=== PATIENT | female | born 1990 | race African-American/Black ===

== ENCOUNTER 2016-12-15 10:03 | Emergency (ER) | payer MEDICAID ==
[2016-12-15 10:23] VITALS: BP 131/81
--- NOTE | 2016-12-15 10:37 | EDM.PDOC ---
ED HPI ENT - General Chief Complaint: ENT Problem Stated Complaint: POSS EAR INFECTION,TEETH HURTING Time Seen by Provider: 12/15/16 10:28 Source of Information: Reports: Patient History Limitations: Reports: No limitations - History of Present Illness INITIAL COMMENTS - FREE TEXT/NARRATIVE: 26-year-old female presents the ED with diffuse right hemifacial pain. Constant and throbbing for the last week but getting worse instead of better. Pain is felt in her ear right temporal area right temporomandibular joint and along the angle of the mandible. She's had recent dental work but was on the other side where wisdom tooth was extracted. She cannot chew on the right side. No associated fever or chills. Pain is bad enough that it kept her awake most of last night in spite of taking Motrin orally. Her other concern is a soft tissue mass in the left anterior facial cheek area. It is slightly tender and seems to be getting bigger. Symptom Onset Date: 12/08/16 Timing/Duration: Reports: Day(s):, Getting worse, Gradual onset Severity: moderate Location: Reports: right Ear (Right josé miguel-face) Quality: Reports: Ache, Throbbing Improves with: Reports: Medication (Motrin helps some.) Worsens with: Reports: Other (Chewing and eating on that side.) Associated Symptoms: Reports: no other symptoms. 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 - Related Data Allergies/ADRs: Allergies Allergy/AdvReac Type Severity Reaction Status Date / Time No Known Allergies Allergy Verified 12/15/16 10:23 Home Meds: Home Meds Doxycycline [Vibramycin] 100 mg PO Q12HR #20 tablet 12/15/16 [Rx] oxyCODONE HCl/Acetaminophen [Percocet 5-325 mg Tablet] 1 - 2 each PO Q4H PRN # 20 tablet 12/15/16 [Rx] Past Medical History - Past Health History Medical/Surgical History: Denies 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 Denies: fever, chills, malaise, weakness, decreased appetite, weight loss (Just from not sleeping.) HEENT: Reports: Ear pain, Other (Right hemifacial pain from right scientology temporal mandibular joint along the angle of the mandible.) Respiratory: Reports: No Symptoms Cardiovascular: Reports: No symptoms Endocrine: Reports: no symptoms GI/Abdominal: Reports: No symptoms : Reports: no symptoms Musculoskeletal: Reports: no symptoms Skin: Reports: other Neurological: Reports: No Symptoms (Has a soft tissue mass in the left facial cheek that she wanted me to look at.) Psychiatric: Reports: No symptoms, Other Immunologic: Reports: no symptoms ED EXAM, ENT - Physical Exam Exam: See Below Exam Limited By: No limitations General Appearance: alert, WD/WN, no apparent distress Eye Exam: bilateral eye: normal inspection Ears: normal TMs, other (No pain at the right temporomandibular joint.) Mouth/Throat: Other (Patient was found to have a badly decayed and broken left upper second molar tooth. There is no adjacent obvious abscess to drain. The gingiva is swollen and erythematous in this area. Very tender to touch with the tongue blade.) Head: atraumatic, normocephalic Neck: normal inspection, supple, non-tender, full range of motion. No: lymphadenopathy (L), lymphadenopathy (R) Skin: Other (Patient has a 1.5 cm soft tissue mass which is mobile IE scant sebaceous cyst over her left facial cheek. It is not actively infected but is mildly tender to touch. So the very bad place to have surgically removed. The hope is that oral antibiotic may help shrink this area.) Course - Vital Signs Last Recorded V/S: Last Vital Signs Temp 36.6 C 12/15/16 10:21 Pulse 75 12/15/16 10:21 Resp 16 12/15/16 10:21 BP 131/81 12/15/16 10:21 Pulse Ox 98 12/15/16 10:21 - Radiology Interpretation Free Text/Narrative:: 6-year-old female presents the ED for evaluation of right hemifacial pain for the last week. Examination confirmed it to be coming from an infected right upper molar. The tooth is broken and decayed. Treated with doxycycline 100 mg twice daily for the next 10 days also in an effort to take away any infection in sebaceous cyst overlying her left facial cheek. She'll use Motrin or Aleve as needed to relieve pain and inflammation. Percocet tabs 5-25 mg strength also provided for pain relief primarily at bedtime. She will follow up with dentist when able. Departure - Departure Time of Disposition: 10:34 Disposition: Home, Self-Care 01 Condition: fair Clinical Impression: Dental infection Prescriptions: Doxycycline [Vibramycin] 100 mg PO Q12HR #20 tablet oxyCODONE HCl/Acetaminophen [Percocet 5-325 mg Tablet] 1 - 2 each PO Q4H PRN # 20 tablet PRN Reason: pain relief. Instructions: Dental Caries Referrals: PCP,None [Primary Care Provider] - Forms: ED Department Discharge Additional Instructions: Evaluation in the emergency department today in regards to pain right josé miguel- face. No ear abnormalities identified. Temporomandibular joint intact. There is a bad tooth on the right upper molar I believe second molar with DKA and secondary infection. Treatment will be antibiotic doxycycline 100 mg twice daily for the next 10 days to clear up infection. Motrin 600 mg every 6 hours need to reduce pain and inflammation. Percocet tabs 5-25 one or 2 every 4-6 hours to relieve pain not relieved by Motrin alone until the antibiotic has time to work. No disembarked also was designed to try and shrink the the sebaceous cyst that is evident in the left facial cheek. Followup with dentist when able to have the right upper molar tooth looked at and likely extracted.
== END 2016-12-15 10:50 | disposition home or self-care (01) ==
LOC: JD.ED 10:03
DX: K04.7 Periapical abscess without sinus (principal); F17.210 Nicotine dependence, cigarettes, uncomplicated
CPT/HCPCS: 99283

== ENCOUNTER 2017-03-29 11:45 | Emergency (ER) | payer MEDICAID ==
[2017-03-29 12:04] VITALS: BP 137/79
--- NOTE | 2017-03-29 12:16 | EDM.PDOC ---
ED HPI GENERAL MEDICAL PROBLEM - General Chief Complaint: Lower Extremity Injury/Pain Stated Complaint: INJURED LT ANKLE Time Seen by Provider: 03/29/17 12:14 Source of Information: Reports: Patient History Limitations: Reports: No Limitations - History of Present Illness INITIAL COMMENTS - FREE TEXT/NARRATIVE: 26-year-old female attends the ED with an acute injury to her left ankle. She reports that about 1:00 this morning she was walking downstairs when she inadvertently inverted her left ankle causing her to fall backwards onto the stairs but talk first. She did not hit her head. Pain kept her awake good portion of the night Tylenol did not help. She did ice it overnight. Cannot weight-bear on the ankle at this time. Both medially and laterally. No previous injuries to the ankle that would require surgical repair. Onset: Today Onset Date: 03/29/17 Onset Time: 01:00 Duration: Hour(s): Location: Reports: Lower Extremity, Left Quality: Reports: Ache, Throbbing Severity: Moderate Improves with: Reports: None Worsens with: Reports: Movement Context: Reports: Other. 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 Left Ankle Pain Score (Numeric/FACES): 8 - Related Data Allergies Allergy/AdvReac Type Severity Reaction Status Date / Time No Known Allergies Allergy Verified 03/29/17 11:59 Home Meds: Home Meds oxyCODONE HCl/Acetaminophen [Percocet 5-325 mg Tablet] 1 - 2 each PO Q4H PRN # 10 tablet 03/29/17 [Rx] Past Medical History - Past Health History Medical/Surgical History: Denies 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: - Past Surgical History HEENT Surgical History: Reports: Oral Surgery Social & Family History - Family History Family Medical History: Noncontributory - Tobacco Use Smoking Status *Q: Never Smoker Years of Tobacco use: 4 Packs/Tins Daily: 0.1 Second Hand Smoke Exposure: Yes - Caffeine Use Caffeine Use: Reports: Coffee, Energy Drinks, Soda, Tea - Recreational Drug Use Recreational Drug Use: No - Living Situation & Occupation Living situation: Reports: Single, Other Occupation: Unemployed Review of Systems - Review of Systems Review Of Systems: See Below Constitutional: Reports: No Symptoms Eyes: Reports: No Symptoms Ears: Reports: No Symptoms Nose: Reports: No Symptoms Mouth/Throat: Reports: No Symptoms Respiratory: Reports: No Symptoms Cardiovascular: Reports: No Symptoms GI/Abdominal: Reports: No Symptoms Genitourinary: Reports: No Symptoms Musculoskeletal: Reports: No Symptoms Skin: Reports: No Symptoms Neurological: Reports: No Symptoms Psychiatric: Reports: No Symptoms ED EXAM, GENERAL - Physical Exam Exam: See Below Exam Limited By: No Limitations General Appearance: Alert, WD/WN, No Apparent Distress Peripheral Pulses: 3+: Posterior Tibial (L), Posterior Tibial (R), Dorsalis Pedis (L), Dorsalis Pedis (R) Extremities: Other (Examination was limited to the left ankle. There is no pain on compression of the proximal fibula. No pain on firm compression mid shaft tib -fib in the ankle. The foot itself exhibits no signs of fractures of the metacarpal tarsals or particularly the head of the fifth metatarsal. There is swelling lateral aspect of the ankle of the distal fibula. There is tenderness of the anterior medial ligaments as well deltoid ligament appears to be intact.) Course - Vital Signs Last Recorded V/S: Last Vital Signs Temp 36.4 C 03/29/17 11:59 Pulse 88 03/29/17 11:59 Resp 16 03/29/17 11:59 BP 137/79 03/29/17 11:59 Pulse Ox 100 03/29/17 11:59 - Orders/Labs/Meds Orders: Active Orders 24 hr Category Date Time Status Ankle Min 3V Lt [CR] Stat Exams 03/29/17 12:14 Taken - Radiology Interpretation Free Text/Narrative:: 26-year-old female presents to the ED with an acute inversion injury to her left ankle that occurred earlier this morning. She is unable to weight-bear due to the pain. She has moderate swelling over the distal fibula on the left side. Minimal tenderness of the deltoid ligament medially. Plan x-ray of the ankle to be done. Patient denies any possibility of . - Re-Assessments/Exams Free Text/Narrative Re-Assessment/Exam: 03/29/17 12:47 x-rays of the left ankle are negative for bony injury. Ligaments were identified to be stable on examination after no fracture is identified. She will be Zeferino wrap on during the day and off at night. Elevate and ice today with ice to the area one half hour out of every 4 hours. Motrin or Aleve Q6 hours for pain relief. Nonweightbearing crutch walking for the next 3-5 days. Did write a prescription for Percocet 5/325 milligrams tablets 10 one tablet every 4-6 hours for pain not controlled by Aleve or Motrin alone. Follow-up if not completely back to normal in 14 days time. Departure - Departure Time of Disposition: 12:55 Disposition: Home, Self-Care 01 Condition: Fair Clinical Impression: Inversion sprain of left ankle Qualifiers: Encounter type: initial encounter Qualified Code(s): S93.402A - Sprain of unspecified ligament of left ankle, initial encounter - Discharge Information Prescriptions: oxyCODONE HCl/Acetaminophen [Percocet 5-325 mg Tablet] 1 - 2 each PO Q4H PRN # 10 tablet PRN Reason: pain relief. Referrals: Hollie Zabala PA-C [Primary Care Provider] - Forms: ED Department Discharge Additional Instructions: Evaluation in the emergency department today in regards to inversion injury to the left ankle sustained earlier this morning. X-rays do not reveal any bony injuries to the ankle. For injuries are to the soft tissues i.e. the ligaments surrounding the ankle joint on the outer aspect. Treatment is Zeferino wrap on during the day and off at night. Ice pack to the area for one half hour out of every 4 hours today and elevate as much as possible. Nonweightbearing crutch walking for the next 3-5 days until you're able to weight-bear with minimal amount of pain. Continue Motrin 600 mg every 6 hours or Aleve 2 tablets every 8 hours for pain and inflammation relief. I did give you a prescription for stronger pain medication Percocet 5/325 milligrams one tablet every 4-6 hours for pain not controlled by Motrin or Aleve alone. Usually occurs over the next 3 days with in terms of swelling. It usually takes 10-14 days before you're able to walk up stairs comfortably without pain. If you're still having positive the ankle in 14 days time he should be reviewed. - My Orders Last 24 Hours: My Active Orders 03/29/17 12:14 Ankle Min 3V Lt [CR] Stat - Assessment/Plan Last 24 Hours: My Active Orders 03/29/17 12:14 Ankle Min 3V Lt [CR] Stat
--- NOTE | 2017-03-29 17:29 | CR ---
Left ankle: Four views of the left ankle were obtained. Comparison: No previous left ankle study. Ankle mortise is symmetric. No fracture, dislocation or other bony abnormality is seen. Impression: 1. No abnormality is identified on left ankle exam. Diagnostic code #1
== END 2017-03-29 13:29 | disposition home or self-care (01) ==
LOC: JD.ED 11:45
DX: S93.402A Sprain of unspecified ligament of left ankle, initial encounter (principal); W10.9XXA Fall (on) (from) unspecified stairs and steps, initial encounter
CPT/HCPCS: 73610-26-LT; 73610-LT; 99283

== ENCOUNTER 2017-06-22 11:38 | Emergency (ER) | payer SELFPAY ==
[2017-06-22 11:54] VITALS: BP 188/79
--- NOTE | 2017-06-22 12:16 | EDM.PDOC ---
ED HPI GENERAL MEDICAL PROBLEM - General Chief Complaint: ENT Problem Stated Complaint: COUGH AND SORE THROAT Time Seen by Provider: 06/22/17 12:00 Source of Information: Reports: Patient History Limitations: Reports: No Limitations - History of Present Illness INITIAL COMMENTS - FREE TEXT/NARRATIVE: 27-year-old female presents for evaluation and treatment of cold symptoms. Reports that she has been ill for the last week. She has tried multiple over-the -counter medications but her symptoms are not improving. Current symptoms include left ear discomfort, body aches, sore throat and a cough. Reports that her symptoms are worse at night. No fevers. No recent travel. Son is ill with similar symptoms. Patient did not get a flu shot this year. Duration: Week(s): (1) Throat Pain Score (Numeric/FACES): 6 - Related Data Allergies Allergy/AdvReac Type Severity Reaction Status Date / Time No Known Allergies Allergy Verified 03/29/17 11:59 Home Meds: Home Meds . 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 Denies: Fever HEENT: Reports: Ear Pain (left), Throat Pain Respiratory: Reports: Cough, Sputum Neurological: Reports: Headache ED EXAM, ENT - Physical Exam Exam: See Below Exam Limited By: No Limitations General Appearance: Alert, WD/WN, No Apparent Distress Eye Exam: Bilateral Eye: Normal Inspection Ears: Normal External Exam, Normal Canal, Hearing Grossly Normal, Normal TMs Nose: Normal Inspection Mouth/Throat: Normal Inspection, Normal Lips, Normal Oropharynx Respiratory/Chest: No Respiratory Distress, Lungs Clear, Normal Breath Sounds Cardiovascular: Normal Peripheral Pulses, Regular Rate, Rhythm, No Murmur Neurological: Alert, Oriented, Normal Cognition Psychiatric: Normal Affect, Normal Mood Skin: Warm, Dry, Normal Color Course - Vital Signs Last Recorded V/S: Last Vital Signs Temp 36.4 C 06/22/17 11:54 Pulse 89 06/22/17 11:54 Resp 20 06/22/17 11:54 BP 188/79 H 06/22/17 11:54 Pulse Ox 99 06/22/17 11:54 - Orders/Labs/Meds Orders: Active Orders 24 hr Category Date Time Status CULTURE STREP A CONFIRMATION [RM] Stat Lab 06/22/17 12:25 Results STREP SCRN A RAPID W CULT CONF [RM] Stat Lab 06/22/17 12:25 Received - Re-Assessments/Exams Free Text/Narrative Re-Assessment/Exam: 06/22/17 13:11 Influenza returned negative. Rapid strep returned negative negative I reviewed the results with the patient. I feel this is a viral infection. Encouraged her to continue [id number] medications instructed her to follow-up if not much better. Return to the ER if symptoms change or worsen. Discharge instructions as documented. Departure - Departure Time of Disposition: 13:12 Disposition: Home, Self-Care 01 Condition: Good Clinical Impression: Viral upper respiratory illness - Discharge Information Instructions: Upper Respiratory Infection, Adult, [id number] Referrals: PCP,None [Primary Care Provider] - Forms: ED Department Discharge Additional Instructions: Continue with [id number] medications including Tylenol or Motrin as needed for body aches and symptom relief. Rest. Make sure drinking plenty of fluids. Follow-up with family medicine if your symptoms are not much better in 1 week. Please return to the ER if your symptoms change or worsen. - My Orders Last 24 Hours: My Active Orders 06/22/17 12:25 CULTURE STREP A CONFIRMATION [RM] Stat STREP SCRN A RAPID W CULT CONF [RM] Stat - Assessment/Plan Last 24 Hours: My Active Orders 06/22/17 12:25 CULTURE STREP A CONFIRMATION [RM] Stat STREP SCRN A RAPID W CULT CONF [RM] Stat
== END 2017-06-22 13:35 | disposition home or self-care (01) ==
LOC: JD.ED 11:38
DX: J06.9 Acute upper respiratory infection, unspecified (principal)
CPT/HCPCS: 87081; 87430; 87804; 99282; 99283

== ENCOUNTER 2017-08-30 11:12 | Emergency (ER) | payer MEDICAID ==
[2017-08-30 11:35] VITALS: BP 128/87
--- NOTE | 2017-08-30 11:35 | EDM.PDOC ---
ED HPI GENERAL MEDICAL PROBLEM - General Chief Complaint: Respiratory Problem Stated Complaint: FEVER/BODY ACHES Time Seen by Provider: 08/30/17 11:35 Source of Information: Reports: Patient, RN Notes Reviewed History Limitations: Reports: No Limitations - History of Present Illness INITIAL COMMENTS - FREE TEXT/NARRATIVE: The patient states that she has had rhinorrhea, a cough productive of greenish mucus, sore throat, generalized body aches, headache, and chills, for the past 3 days. She has not checked her temperature. She states that she tried NyQuil, which did not help. She states that she has also been taking Motrin, which has not helped. The patient states that she received an influenza vaccine about 6 months ago ( last season). She did not receive an influenza vaccine this season. The patient does not have a PCP. Generalized Pain Score (Numeric/FACES): 10 - Related Data Allergies Allergy/AdvReac Type Severity Reaction Status Date / Time No Known Allergies Allergy Verified 03/29/17 11:59 Home Meds: Home Meds . 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: - Past Surgical History HEENT Surgical History: Reports: Oral Surgery ([place] teeth extraction) Social & Family History - Family History Family Medical History: Noncontributory - Tobacco Use Smoking Status *Q: Never Smoker Years of Tobacco use: 4 Packs/Tins Daily: 0.1 Second Hand Smoke Exposure: Yes - Caffeine Use Caffeine Use: Reports: Soda, Tea - Recreational Drug Use Recreational Drug Use: No - Living Situation & Occupation Living situation: Reports: Single, Other Occupation: Unemployed ED ROS GENERAL - Review of Systems Review Of Systems: ROS reveals no pertinent complaints other than HPI. ED EXAM, GENERAL - Physical Exam Exam: See Below Exam Limited By: No Limitations General Appearance: Alert, WD/WN, No Apparent Distress Eye Exam: Bilateral Eye: Normal Inspection Ears: Normal External Exam, Normal Canal, Hearing Grossly Normal, Normal TMs Nose: Normal Inspection, No Blood, Other (Bilateral nasal mucosal edema, left > right) Throat/Mouth: Normal Inspection, Normal Lips, Normal Teeth, Normal Gums, Normal Oropharynx, Normal Voice, No Airway Compromise Head: Atraumatic, Normocephalic Neck: Normal Inspection, Supple, Non-Tender, Full Range of Motion. No: Lymphadenopathy (L), Lymphadenopathy (R) Respiratory/Chest: No Respiratory Distress, Lungs Clear, Normal Breath Sounds, No Accessory Muscle Use Cardiovascular: Normal Peripheral Pulses, Regular Rate, Rhythm, No Gallop, No JVD, No Murmur, No Rub Peripheral Pulses: 4+: Radial (L), Radial (R) GI/Abdominal: Normal Bowel Sounds, Soft, Non-Tender, No Organomegaly, No Distention, No Abnormal Bruit, No Mass (Female) Exam: Deferred Rectal (Female) Exam: Deferred Back Exam: Normal Inspection, Full Range of Motion Extremities: Normal Inspection, Normal Range of Motion, No Pedal Edema, Normal Capillary Refill Neurological: Alert, Oriented, Normal Cognition, No Motor/Sensory Deficits Psychiatric: Normal Affect Skin Exam: Warm, Dry, Intact, Normal Color, No Rash Course - Vital Signs Last Recorded V/S: Last Vital Signs Temp 37.5 C 08/30/17 11:34 Pulse 112 H 08/30/17 11:34 Resp 20 08/30/17 11:34 BP 128/87 08/30/17 11:34 Pulse Ox 97 08/30/17 11:34 - Orders/Labs/Meds Orders: Active Orders 24 hr Category Date Time Status CULTURE STREP A CONFIRMATION [] Stat Lab 08/30/17 11:45 Results STREP SCRN A RAPID W CULT CONF [] Stat Lab 08/30/17 11:45 Results Labs: Laboratory Tests 08/30/17 08/30/17 Range/Units 12:00 12:00 WBC 6.15 (3.98-10.04) K/mm3 RBC 4.98 (3.98-5.22) M/mm3 Hgb 10.5 L (11.2-15.7) gm/L Hct 33.5 L (34.1-44.9) % MCV 67.3 L (79.4-94.8) fl MCH 21.1 L (25.6-32.2) pg MCHC 31.3 L (32.2-35.5) g/dl RDW Std Deviation 43.2 (36.4-46.3) fL Plt Count 391 H (182-369) K/mm3 MPV 8.6 L (9.4-12.3) fl Neutrophils % (Manual) 75 H (40-60) % Band Neutrophils % 0 (0-10) % Lymphocytes % (Manual) 18 L (20-40) % Atypical Lymphs % 0 % Monocytes % (Manual) 7 (2-10) % Eosinophils % (Manual) 0 L (0.7-5.8) % Basophils % (Manual) 0 L (0.1-1.2) Platelet Estimate Adequate Hypochromasia 2+ moderate Anisocytosis 2+ moderate Microcytosis 1+ slight RBC Morph Comment Abnormal Sodium 138 (136-145) mEq/L Potassium 3.5 (3.5-5.1) mEq/L Chloride 104 (98-107) mEq/L Carbon Dioxide 26 (21-32) mEq/L Anion Gap 11.5 (5-15) BUN 8 (7-18) mg/dL Creatinine 0.9 (0.55-1.02) mg/dL Est Cr Clr Drug Dosing 87.40 mL/min Estimated GFR (MDRD) > 60 (>60) mL/min BUN/Creatinine Ratio 8.9 L (14-18) Glucose 92 (74-106) mg/dL Calcium 8.8 (8.5-10.1) mg/dL Total Bilirubin 0.2 (0.2-1.0) mg/dL AST 33 (15-37) U/L ALT 53 (14-59) U/L Alkaline Phosphatase 70 (46-116) U/L Total Protein 8.0 (6.4-8.2) g/dl Albumin 3.8 (3.4-5.0) g/dl Globulin 4.2 gm/dL Albumin/Globulin Ratio 0.9 L (1-2) - Re-Assessments/Exams Free Text/Narrative Re-Assessment/Exam: 08/30/17 11:50 The patient complains of rhinorrhea, cough, sore throat, body aches, headache, and chills. She is afebrile here in the ED, and her oxygen saturation is 100% on room air. On physical examination, the only abnormal finding is bilateral nasal mucosal edema, a bit worse on the left than the right. Her lungs are clear to auscultation bilaterally. Clinically, she has a viral URI, although she could have influenza. I have swabbed her throat and will send a strep test. I will also check for influenza, although only for epidemiologic purposes, for if it returns positive, the patient is outside the window for treatment. I offered to perform a blood work and a chest x-ray; the patient would like blood work done, but refused a chest x-ray, stating that she can't leave her 2 children alone. Clinically, I don't believe that the patient really requires a chest radiograph, however, I did tell her that we would be able to have someone watch her children for the few minutes that it would take to get a chest x-ray, but the patient still declined. 08/30/17 13:06 Test results discussed with the patient. The patient's influenza A screen has returned positive. The remainder of her workup was unremarkable. Unfortunately, the patient is presenting well after 48 hours after the onset of her symptoms, therefore antivirals such as Tamiflu would not be effective. I splinted the patient that the only option at this time is symptomatically treatment. The patient expresses understanding. I will refer her to Dr. Cora Navarrete, as a PCP. Departure - Departure Time of Disposition: 13:07 Disposition: Home, Self-Care 01 Condition: Good Clinical Impression: Influenza A - Discharge Information Referrals: PCP,None [Primary Care Provider] - Cora Navarrete MD [Physician] - Forms: ED Department Discharge Additional Instructions: You were seen in the emergency room for 3 days of a runny nose, cough, sore throat, body aches, headache, and chills. Workup in the ER included blood work, a rapid strep test, and an influenza swab. Your influenza swab returned positive for Influenza A. The remainder of your workup was negative. Unfortunately, you have had influenza for too long to be treated by the antiviral medication. This episode of influenza will have to run its course. For nasal congestion, purchase [id number] oxymetazoline in a "pump mist" bottle. [place] one spray up each nostril, wait 5 minutes, then spray a second spray up each nostril. You may repeat this every 12 hours, for a MAXIMUM of 5 days. This will reduce nasal congestion, and make it easier for you to breathe, however, after 5 days, it actually CAUSES nasal congestion. Also purchase "Simply Saline" in a pressurized canister. [place] this up each nostril many times per day. For your sore throat, you can use Chloraseptic spray, warm salt water gargles, Tylenol, or ibuprofen. Follow-up with Dr. Cora Navarrete as a primary care physician. If any other problems, please do not hesitate to return to the ER. - My Orders Last 24 Hours: My Active Orders 08/30/17 11:45 CULTURE STREP A CONFIRMATION [RM] Stat STREP SCRN A RAPID W CULT CONF [RM] Stat - Assessment/Plan Last 24 Hours: My Active Orders 08/30/17 11:45 CULTURE STREP A CONFIRMATION [RM] Stat STREP SCRN A RAPID W CULT CONF [] Stat
== END 2017-08-30 13:26 | disposition home or self-care (01) ==
LOC: JD.ED 11:12
DX: J10.1 Influenza due to other identified influenza virus with other respiratory manifestations (principal)
CPT/HCPCS: 36415; 80053; 85025; 87081; 87430; 87804; 99283

== ENCOUNTER 2017-11-07 20:41 | Emergency (ER) | payer MEDICAID ==
[2017-11-07 21:04] VITALS: BP 126/86
--- NOTE | 2017-11-08 00:06 | EDM.PDOC ---
ED HPI GENERAL MEDICAL PROBLEM - General Chief Complaint: Abdominal Pain Stated Complaint: LEFT SIDE PAIN/HEADACHE Time Seen by Provider: 11/07/17 21:45 Source of Information: Reports: Patient History Limitations: Reports: No Limitations - History of Present Illness INITIAL COMMENTS - FREE TEXT/NARRATIVE: The patient states that she underwent a medical on 11/04/2017 , at a women's clinic in [place]. Prior to treatment, the patient underwent an ultrasound, which confirmed a SLIUP at 8 weeks 6 days. The patient's LMP was 08/26. She is now . The patient states that she was given a medicine that she took on 11/04/2017, followed by 4 pills the following day, 11/05/2017. She does not know the name of either of the medicines. She states that she passed some tissue on 11/05/2017, and has had vaginal bleeding since, perhaps one pad per hour. She then developed left lower quadrant abdominal pain yesterday, 11/06/2017. It is sharp in character, and constant, but made worse when she defecates. She reports having a fever to 102 this morning, along with nausea, but no emesis, constipation, or diarrhea. No blood in the stool. She denies urinary symptoms, such as dysuria, urinary frequency, or urgency. The patient's last oral intake was around noon today. The patient states that she has a PCP, but does not recall their name. 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 - Past Surgical History HEENT Surgical History: Reports: Oral Surgery ([place] teeth extraction) Social & Family History - Family History Family Medical History: Noncontributory - Tobacco Use Smoking Status *Q: Former Smoker Years of Tobacco use: 4 Packs/Tins Daily: 0.1 Second Hand Smoke Exposure: Yes - Caffeine Use Caffeine Use: Reports: Coffee, Soda, Tea - Alcohol Use Alcohol Use History: Yes Alcohol Use Frequency: Socially - Recreational Drug Use Recreational Drug Use: No - Living Situation & Occupation Living situation: Reports: Single, with Family (4 kids), Other (with roomate) Occupation: Unemployed ED ROS GENERAL - Review of Systems Review Of Systems: ROS reveals no pertinent complaints other than HPI. ED EXAM, RENAL/ - Physical Exam Exam: See Below Exam Limited By: No Limitations General Appearance: Alert, WD/WN, No Apparent Distress Eye Exam: Bilateral Eye: Normal Inspection Ears: Normal External Exam, Hearing Grossly Normal Nose: Normal Inspection, No Blood Throat/Mouth: Normal Inspection, Normal Lips, Normal Voice, No Airway Compromise Head: Atraumatic, Normocephalic Neck: Normal Inspection, Full Range of Motion Respiratory/Chest: No Respiratory Distress, Lungs Clear, Normal Breath Sounds, No Accessory Muscle Use Cardiovascular: Normal Peripheral Pulses, Regular Rate, Rhythm, No Gallop, No JVD, No Murmur, No Rub GI/Abdominal: Normal Bowel Sounds, Soft, No Organomegaly, No Distention, No Abnormal Bruit, No Mass, Tender (LLQ only. Nontender elsewhere.) (Female) Exam: Deferred Rectal (Female) Exam: Deferred Back Exam: Normal Inspection, Full Range of Motion, NT Extremities: Normal Inspection, Normal Range of Motion, No Pedal Edema, Normal Capillary Refill Neurological: Alert, Oriented, Normal Cognition, No Motor/Sensory Deficits Psychiatric: Normal Affect Skin Exam: Warm, Dry, Intact, Normal Color, No Rash Lymphatic: No Adenopathy Course - Vital Signs Last Recorded V/S: Last Vital Signs Temp 36.9 C 11/07/17 21:02 Pulse 94 11/07/17 21:02 Resp 20 11/07/17 21:02 BP 126/86 11/07/17 21:02 Pulse Ox 100 11/07/17 21:02 - Re-Assessments/Exams Free Text/Narrative Re-Assessment/Exam: 11/08/17 00:04 Transvaginal ultrasound of the pelvis is read by [facility] as " Echogenic structure within the endometrium measuring 3.2 x 2.5 cm. The patient apparently had a recent and the possibility of a retained products of conception should be considered. The endometrial stripe is thickened at 45 mm" (sic) 11/08/17 00:[address] Yang at 00:07. He believes that the amount of intrauterine tissue is appropriate for a medical at this stage. He suspects that the pain that the patient is experiencing is uterine cramps, also appropriate at this stage. He suggests, however, that if the patient's symptoms persist, or her bleeding worsens, that she follow-up either at the clinic in [place], or at his office, early this coming week. Test results then discussed with the patient. I'm concerned more about the left lower quadrant tenderness than the pelvic pain itself, and we discussed the option of obtaining a CT scan to further evaluate it. The patient would prefer, however, to follow-up with Dr. Yang early this week, but agrees to return to the ED if her pain or bleeding worsens. Departure - Departure Time of Disposition: 00:23 Disposition: Home, Self-Care 01 Condition: Good Clinical Impression: Pelvic pain in female - Discharge Information Instructions: Incomplete Miscarriage Referrals: PCP,None [Primary Care Provider] - Tereso Yang MD [Physician] - Forms: ED Department Discharge Additional Instructions: You were seen in the emergency room for left pelvic pain following a medical . Workup in the ER included a transvaginal ultrasound of the pelvis, which found tissue in your uterus consistent with retained products of conception. Your case was discussed with the mutuel clerk Dr. Tereso Yang. Further workup, including a CT scan of your abdomen and pelvis, was offered, but declined. Follow-up with Dr. Yang early this coming week for further evaluation. If your pain or bleeding worsens before you can see Dr. Yang, please return to the ER.
--- NOTE | 2017-11-08 16:52 | US ---
Pelvic ultrasound: Multiple real-time images were obtained transvaginally. Echogenic material is seen within the endometrial cavity measuring 3.8 cm in greatest size. Findings most likely due to retained products of conception. No myometrial abnormality is seen. Ovaries appear within normal limits. No free fluid is seen. Measurements: Uterus: Length 13.2 cm, AP height 7.0 cm, transverse width 9.2 cm Endometrial thickness: 3.1 cm Right ovary: 2.3 x 2.7 x 1.8 cm Left ovary: 3.6 x 2.2 x 2.7 cm Impression: 1. Echogenic material within the endometrial cavity most likely representing retained products of conception. Diagnostic code #3 Agree with preliminary report issued by [facility] ([facility] preliminary report dictated on 11/08/17, 12:51 AM Central Time)
== END 2017-11-08 00:30 | disposition home or self-care (01) ==
LOC: JD.ED 20:41
DX: R10.2 Pelvic and perineal pain (principal); Z87.891 Personal history of nicotine dependence
CPT/HCPCS: 76830; 76830-26; 99283; 99284-25

== ENCOUNTER 2018-01-10 05:44 | Emergency (ER) | payer MEDICAID, OTHER ==
[2018-01-10 05:58] VITALS: BP 138/69
[2018-01-10] MEDS ORDERED: Ondansetron 4 MG/2 ML SDV IVPUSH ONE ×2 (06:06→07:37)
--- NOTE | 2018-01-10 06:08 | EDM.PDOC ---
ED HPI GENERAL MEDICAL PROBLEM - General Chief Complaint: Gastrointestinal Problem Stated Complaint: FEVER,CHILLS STOMACH ISSUES Time Seen by Provider: 01/10/18 06:06 Source of Information: Reports: Patient History Limitations: Reports: No Limitations - History of Present Illness INITIAL COMMENTS - FREE TEXT/NARRATIVE: This is a 27-year-old female. Onset of nausea and vomiting then diarrhea around 7 PM yesterday evening. She states she's been able to keep down some 7-Up but that's about it. She doesn't have any abdominal cramping unless she is going to vomit. She denies any fever or chills. She denies any cough or congestion. She is around a lot of people so she doesn't know if she's been in contact with someone with the same symptoms. 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 Denies: Fever, Chills HEENT: Reports: No Symptoms Respiratory: Reports: No Symptoms Cardiovascular: Reports: No Symptoms Endocrine: Reports: No Symptoms GI/Abdominal: Reports: Abdominal Pain, Diarrhea, Nausea, Vomiting : Reports: No Symptoms Musculoskeletal: Reports: No Symptoms Skin: Reports: No Symptoms Neurological: Reports: No Symptoms Psychiatric: Reports: No Symptoms Hematologic/Lymphatic: Reports: No Symptoms ED EXAM, GI/ABD - Physical Exam Exam: See Below Exam Limited By: No Limitations General Appearance: Alert, WD/WN, No Apparent Distress Eyes: Bilateral: Normal Appearance Ears: Normal External Exam, Normal Canal, Normal TMs Nose: Normal Inspection Throat/Mouth: Normal Inspection, Normal Lips, Normal Voice, No Airway Compromise , Other (Membranes are tacky) Head: Normocephalic Neck: Supple Respiratory/Chest: No Respiratory Distress, Lungs Clear, Normal Breath Sounds Cardiovascular: Regular Rate, Rhythm, No Murmur GI/Abdominal Exam: Soft, Non-Tender, No Mass Back Exam: Normal Inspection, Full Range of Motion Extremities: Normal Inspection, Normal Range of Motion Neurological: Alert, Oriented Psychiatric: Normal Affect, Normal Mood Skin Exam: Warm, Dry Course - Vital Signs Last Recorded V/S: Last Vital Signs Temp 98.0 F 01/10/18 05:56 Pulse 90 01/10/18 05:56 Resp 18 01/10/18 05:56 BP 138/69 01/10/18 05:56 Pulse Ox 100 01/10/18 05:56 Orthostatic Blood Pressure [ 127/88 Standing] Orthostatic Blood Pressure [ 138/69 Supine] - Orders/Labs/Meds Orders: Active Orders 24 hr Category Date Time Status Sodium Chloride 0.9% [Normal Saline] 1,000 ml Med 01/10/18 06:15 Active IV ASDIRECTED Sodium Chloride 0.9% [Normal Saline] 1,000 ml Med 01/10/18 07:45 Active IV ASDIRECTED Sodium Chloride 0.9% [Normal Saline] 1,000 ml Med 01/10/18 09:15 Active IV ASDIRECTED Medication Orders Sodium Chloride (Normal Saline) 1,000 mls @ 1,000 mls/hr IV ASDIRECTED TOMÁS Last Admin: 01/10/18 06:19 Dose: 1,000 mls/hr Sodium Chloride (Normal Saline) 1,000 mls @ 1,000 mls/hr IV ASDIRECTED TOMÁS Last Admin: 01/10/18 07:44 Dose: 1,000 mls/hr Sodium Chloride (Normal Saline) 1,000 mls @ 1,000 mls/hr IV ASDIRECTED TOMÁS Last Admin: 01/10/18 09:25 Dose: 1,000 mls/hr Labs: Laboratory Tests 01/10/18 01/10/18 Range/Units 06:21 06:21 WBC 8.99 (3.98-10.04) K/mm3 RBC 5.35 H (3.98-5.22) M/mm3 Hgb 11.2 (11.2-15.7) gm/L Hct 36.5 (34.1-44.9) % MCV 68.2 L (79.4-94.8) fl MCH 20.9 L (25.6-32.2) pg MCHC 30.7 L (32.2-35.5) g/dl RDW Std Deviation 41.5 (36.4-46.3) fL Plt Count 358 (182-369) K/mm3 MPV 8.4 L (9.4-12.3) fl Neut % (Auto) 83.8 H (34.0-71.1) % Lymph % (Auto) 13.3 L (19.3-51.7) % [place] % (Auto) 1.9 L (4.7-12.5) % Eos % (Auto) 0.8 (0.7-5.8) Baso % (Auto) 0.1 (0.1-1.2) % Neut # (Auto) 7.53 H (1.56-6.13) K/mm3 Lymph # (Auto) 1.20 (1.18-3.74) K/mm3 [place] # (Auto) 0.17 L (0.24-0.36) K/mm3 Eos # (Auto) 0.07 (0.04-0.36) K/mm3 Baso # (Auto) 0.01 (0.01-0.08) K/mm3 Manual Slide Review Abnormal smear Sodium 140 (136-145) mEq/L Potassium 3.8 (3.5-5.1) mEq/L Chloride 103 (98-107) mEq/L Carbon Dioxide 26 (21-32) mEq/L Anion Gap 14.8 (5-15) BUN 13 (7-18) mg/dL Creatinine 0.8 (0.55-1.02) mg/dL Est Cr Clr Drug Dosing TNP Estimated GFR (MDRD) > 60 (>60) mL/min BUN/Creatinine Ratio 16.3 (14-18) Glucose 101 (74-106) mg/dL Calcium 8.9 (8.5-10.1) mg/dL Total Bilirubin 0.4 (0.2-1.0) mg/dL AST 51 H (15-37) U/L ALT 57 (14-59) U/L Alkaline Phosphatase 65 (46-116) U/L Total Protein 7.9 (6.4-8.2) g/dl Albumin 3.9 (3.4-5.0) g/dl Globulin 4.0 gm/dL Albumin/Globulin Ratio 1.0 (1-2) Lipase 162 (73-393) U/L Meds: Medications Generic Name Dose Route Start Last Admin Trade Name Freq PRN Reason Stop Dose Admin Sodium Chloride 1,000 mls @ 1,000 mls/hr 01/10/18 06:15 01/10/18 06:19 Normal Saline IV 1,000 mls/hr ASDIRECTED TOMÁS Administration Sodium Chloride 1,000 mls @ 1,000 mls/hr 01/10/18 07:45 01/10/18 07:44 Normal Saline IV 1,000 mls/hr ASDIRECTED TOMÁS Administration Sodium Chloride 1,000 mls @ 1,000 mls/hr 01/10/18 09:15 01/10/18 09:25 Normal Saline IV 1,000 mls/hr ASDIRECTED TOMÁS Administration Discontinued Medications Generic Name Dose Route Start Last Admin Trade Name Freq PRN Reason Stop Dose Admin Promethazine HCl 25 mg/ Sodium 51 mls @ 100 mls/hr 01/10/18 09:04 01/10/18 09 :25 Chloride IV 01/10/18 09:34 100 mls/hr ONETIME ONE Administration Ondansetron HCl 4 mg 01/10/18 06:06 01/10/18 06:19 Zofran IVPUSH 01/10/18 06:07 4 mg ONETIME ONE Administration Ondansetron HCl 4 mg 01/10/18 07:37 01/10/18 07:44 Zofran IVPUSH 01/10/18 07:38 4 mg ONETIME ONE Administration - Re-Assessments/Exams Free Text/Narrative Re-Assessment/Exam: 01/10/18 07:49 We attempted fluids and she had some mild upset stomach and vomited a small amount. I spoke to her about her normal lab results and I think is just more of a viral type infection is been going around town. We will give her an additional liter of fluids and some more Zofran and water and attempted fluids again. 01/10/18 10:10 Patient is feeling much better. Her nausea is pretty much subsided and she still getting fluids and she's finished a Phenergan drip. Once the third liter of fluids her and were going to discharge her to home with a prescription for nausea and instructions. Departure - Departure Time of Disposition: 10:10 Disposition: Home, Self-Care 01 Condition: Good Clinical Impression: Nausea and vomiting Qualifiers: Vomiting type: unspecified Vomiting Intractability: non-intractable Qualified Code(s): R11.2 - Nausea with vomiting, unspecified - Discharge Information Prescriptions: Promethazine [Phenergan] 25 mg PO Q8H PRN #12 tab PRN Reason: Nausea Instructions: Nausea and Vomiting, Adult Referrals: PCP,None [Primary Care Provider] - Forms: ED Department Discharge, ED Return to Work/School Form Additional Instructions: Home and sleep as much as you can today, no significant activity just stay in the house for the next 2 days, use the Phenergan as needed for nausea, drink lots of fluids but no food today, Thursday you can start eating easy to digest foods such as toast, yogurt, rice, bananas and crackers, no meets or vegetables for at least 4 days, follow-up with your family doctor later this week or return to the ER if your symptoms worsen - My Orders Last 24 Hours: My Active Orders 01/10/18 06:15 Sodium Chloride 0.9% [Normal Saline] 1,000 ml IV ASDIRECTED 01/10/18 07:45 Sodium Chloride 0.9% [Normal Saline] 1,000 ml IV ASDIRECTED 01/10/18 09:15 Sodium Chloride 0.9% [Normal Saline] 1,000 ml IV ASDIRECTED - Assessment/Plan Last 24 Hours: My Active Orders 01/10/18 06:15 Sodium Chloride 0.9% [Normal Saline] 1,000 ml IV ASDIRECTED 01/10/18 07:45 Sodium Chloride 0.9% [Normal Saline] 1,000 ml IV ASDIRECTED 01/10/18 09:15 Sodium Chloride 0.9% [Normal Saline] 1,000 ml IV ASDIRECTED
[2018-01-10] MEDS ORDERED: Sodium Chloride 0.9% 1,000 ML IV SCH ×3 (06:15→09:15)
[2018-01-10] MEDS ORDERED: Promethazine 25 MG in Sodium Chloride 0.9% 50 ML IV ONE (09:04)
== END 2018-01-10 11:10 | disposition home or self-care (01) ==
LOC: JD.ED 05:44
DX: R11.2 Nausea with vomiting, unspecified (principal)
CPT/HCPCS: 36415; 80053; 83690; 85025; 96361; 96365; 96375; 96376; 99283; J2405; J2550; J7040; J7050; 99284

== ENCOUNTER 2018-09-01 13:53 | Emergency (ER) | payer MEDICAID ==
[2018-09-01 14:08] VITALS: BP 142/83
[2018-09-01] MEDS ORDERED: Ondansetron 4 MG Tab.DIS PO ONE (14:37)
--- NOTE | 2018-09-01 14:48 | EDM.PDOC ---
<Franchesca Feliz - Last Filed: 09/01/18 15:02> ED HPI GENERAL MEDICAL PROBLEM - General Chief Complaint: Abdominal Pain Stated Complaint: ABDOMINAL PAINS, DIZZY AND NAUSEA Time Seen by Provider: 09/01/18 14:15 Source of Information: Reports: Patient, RN Notes Reviewed History Limitations: Reports: No Limitations - History of Present Illness INITIAL COMMENTS - FREE TEXT/NARRATIVE: Lyubov Triplett is a 28 year old female who presents today with sudden onset abdominal pain, dizziness, and nausea for the past three days. She states that she feels like she might have the flu and her symptoms just seem to be worsening. She states that she has an aching and burning abdominal pain that is made worse at night when lying down and after eating, that is across her entire abdomen. She did have an episode of emesis on Thursday, no emesis since, only nausea that is constant. She denies blood in her emesis or stool. Denies any diarrhea. Last BM was this morning and it was formed. She also complains of some URI symptoms like slight cough, nasal congestion and sore throat. She has tactile fevers and nightsweats, and states she has decreased appetite. She has been self treating with Day-Quil cold and flu, and Ny-Quil. She denies any chest pain, shortness of breath, urinary symptoms, no body aches, and no neurologic symptoms. Patient is sexually active. She states her LMP started on Aug 23 and ended 2 days ago. She does smoke cigars on occasion and previously smoked marijuana, and quit one month ago. 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 TOOL ADJUSTER History: medication on October - Past Surgical History HEENT Surgical History: Reports: Oral Surgery Social & Family History - Family History Family Medical History: Noncontributory - Tobacco Use Smoking Status *Q: Current Every Day Smoker Years of Tobacco use: 2 Packs/Tins Daily: 1 - Caffeine Use Caffeine Use: Reports: Coffee, Soda, Tea - Recreational Drug Use Recreational Drug Type: Reports: Marijuana/Hashish Other Recreational Drug Type: quit a month ago - Living Situation & Occupation Living situation: Reports: Single, with Family (4 kids), Other (with roomate) Occupation: Unemployed ED ROS GENERAL - Review of Systems Review Of Systems: ROS reveals no pertinent complaints other than HPI. ED EXAM, GI/ABD - Physical Exam Exam: See Below Exam Limited By: No Limitations General Appearance: Alert, WD/WN, No Apparent Distress Throat/Mouth: Normal Inspection, Normal Oropharynx Head: Atraumatic, Normocephalic Neck: Normal Inspection, Non-Tender, Full Range of Motion Respiratory/Chest: No Respiratory Distress, Lungs Clear, Normal Breath Sounds Cardiovascular: Regular Rate, Rhythm, No Edema, No Murmur, No Rub GI/Abdominal Exam: Normal Bowel Sounds, Soft, Non-Tender (McBurney's, Yi's and Rebound tenderness negative ), No Mass Neurological: Alert, Oriented Psychiatric: Tearful (patient becomes tearful when explaining nightime abdominal pain, but is quick to compose herself) Skin Exam: Warm, Dry, Intact, Normal Color Course - Vital Signs Last Recorded V/S: Last Vital Signs Temp 97.9 F 09/01/18 14:07 Pulse 79 09/01/18 14:07 Resp 20 09/01/18 14:07 BP 142/83 H 09/01/18 14:07 Pulse Ox 100 09/01/18 14:07 Orthostatic Blood Pressure [ 141/98 Standing] Orthostatic Blood Pressure [ 144/84 Sitting] Orthostatic Blood Pressure [ 129/80 Supine] - Orders/Labs/Meds Orders: Active Orders 24 hr Category Date Time Status Orthostatic Vital Signs [RC] ASDIRECTED Care 09/01/18 14:35 Active Abdomen 2V AP Flat Upright [CR] Stat Exams 09/01/18 16:09 Taken Labs: Laboratory Tests 09/01/18 09/01/18 09/01/18 Range/Units 14:50 14:50 15:00 WBC 9.52 (3.98-10.04) K/mm3 RBC 5.06 (3.98-5.22) M/mm3 Hgb 10.3 L (11.2-15.7) gm/L Hct 33.9 L (34.1-44.9) % MCV 67.0 L (79.4-94.8) fl MCH 20.4 L (25.6-32.2) pg MCHC 30.4 L (32.2-35.5) g/dl RDW Std Deviation 41.9 (36.4-46.3) fL Plt Count 509 H (182-369) K/mm3 MPV 8.5 L (9.4-12.3) fl Neutrophils % (Manual) 68 H (40-60) % Band Neutrophils % 1 (0-10) % Lymphocytes % (Manual) 28 (20-40) % Atypical Lymphs % 0 % Monocytes % (Manual) 2 (2-10) % Eosinophils % (Manual) 0 L (0.7-5.8) % Basophils % (Manual) 1 (0.1-1.2) Platelet Estimate Increased Plt Morphology Comment See note Poikilocytosis 1+ slight Anisocytosis 1+ slight Microcytosis 1+ slight Ovalocytes 1+ slight RBC Morph Comment Not Reportable Sodium 143 (136-145) mEq/L Potassium 3.8 (3.5-5.1) mEq/L Chloride 107 (98-107) mEq/L Carbon Dioxide 26 (21-32) mEq/L Anion Gap 13.8 (5-15) BUN 7 (7-18) mg/dL Creatinine 0.7 (0.55-1.02) mg/dL Est Cr Clr Drug Dosing 102.81 mL/min Estimated GFR (MDRD) > 60 (>60) mL/min BUN/Creatinine Ratio 10.0 L (14-18) Glucose 95 (74-106) mg/dL Calcium 9.2 (8.5-10.1) mg/dL Total Bilirubin 0.2 (0.2-1.0) mg/dL AST 23 (15-37) U/L ALT 34 (14-59) U/L Alkaline Phosphatase 61 (46-116) U/L C-Reactive Protein < 0.2 (<1.0) mg/dL Total Protein 7.9 (6.4-8.2) g/dl Albumin 4.1 (3.4-5.0) g/dl Globulin 3.8 gm/dL Albumin/Globulin Ratio 1.1 (1-2) Urine Color Yellow (Yellow) Urine Appearance Clear (Clear) Urine pH 7.0 (5.0-8.0) Ur Specific [place] 1.015 (1.005-1.030) Urine Protein Negative (Negative) Urine Glucose (UA) Negative (Negative) Urine Ketones Negative (Negative) Urine Occult Blood Negative (Negative) Urine Nitrite Negative (Negative) Urine Bilirubin Negative (Negative) Urine Urobilinogen 0.2 (0.2-1.0) Ur Leukocyte Esterase Trace H (Negative) Urine RBC Not seen (0-5) /hpf Urine WBC 5-10 H (0-5) /hpf Ur Epithelial Cells 10-20 H (0-5) /hpf Urine Bacteria Rare (FEW) /hpf Urine Mucus Not seen (FEW) /hpf Urine HCG, Qual (NEGATIVE) 09/01/18 Range/Units 15:00 WBC (3.98-10.04) K/mm3 RBC (3.98-5.22) M/mm3 Hgb (11.2-15.7) gm/L Hct (34.1-44.9) % MCV (79.4-94.8) fl MCH (25.6-32.2) pg MCHC (32.2-35.5) g/dl RDW Std Deviation (36.4-46.3) fL Plt Count (182-369) K/mm3 MPV (9.4-12.3) fl Neutrophils % (Manual) (40-60) % Band Neutrophils % (0-10) % Lymphocytes % (Manual) (20-40) % Atypical Lymphs % % Monocytes % (Manual) (2-10) % Eosinophils % (Manual) (0.7-5.8) % Basophils % (Manual) (0.1-1.2) Platelet Estimate Plt Morphology Comment Poikilocytosis Anisocytosis Microcytosis Ovalocytes RBC Morph Comment Sodium (136-145) mEq/L Potassium (3.5-5.1) mEq/L Chloride (98-107) mEq/L Carbon Dioxide (21-32) mEq/L Anion Gap (5-15) BUN (7-18) mg/dL Creatinine (0.55-1.02) mg/dL Est Cr Clr Drug Dosing mL/min Estimated GFR (MDRD) (>60) mL/min BUN/Creatinine Ratio (14-18) Glucose (74-106) mg/dL Calcium (8.5-10.1) mg/dL Total Bilirubin (0.2-1.0) mg/dL AST (15-37) U/L ALT (14-59) U/L Alkaline Phosphatase (46-116) U/L C-Reactive Protein (<1.0) mg/dL Total Protein (6.4-8.2) g/dl Albumin (3.4-5.0) g/dl Globulin gm/dL Albumin/Globulin Ratio (1-2) Urine Color (Yellow) Urine Appearance (Clear) Urine pH (5.0-8.0) Ur Specific [place] (1.005-1.030) Urine Protein (Negative) Urine Glucose (UA) (Negative) Urine Ketones (Negative) Urine Occult Blood (Negative) Urine Nitrite (Negative) Urine Bilirubin (Negative) Urine Urobilinogen (0.2-1.0) Ur Leukocyte Esterase (Negative) Urine RBC (0-5) /hpf Urine WBC (0-5) /hpf Ur Epithelial Cells (0-5) /hpf Urine Bacteria (FEW) /hpf Urine Mucus (FEW) /hpf Urine HCG, Qual Negative (NEGATIVE) Meds: Medications Discontinued Medications Generic Name Dose Route Start Last Admin Trade Name Freq PRN Reason Stop Dose Admin Ondansetron HCl 4 mg 09/01/18 14:37 09/01/18 14:50 Zofran Odt PO 09/01/18 14:38 4 mg ONETIME ONE Administration - Re-Assessments/Exams Free Text/Narrative Re-Assessment/Exam: 09/01/18 14:51 We have ordered a CBC, CMP, UA, HCG, orthostatics, and CRP to rule out any infectious process, UTI, decreased fluid status, or . Differentials include a viral gastroenteritis, decreased fluid status, gastric or duodenal ulcer, or other abdominal pathology. Lab results will help guide further differentials, as physical exam is quite benign. 09/01/18 15:02 Departure - Departure Disposition: Home, Self-Care 01 Clinical Impression: Abdominal pain, Constipation - Discharge Information Prescriptions: Dicyclomine [Bentyl] 10 mg PO TID PRN #15 cap PRN Reason: Abdominal Pain Ondansetron [Zofran ODT] 4 mg PO Q6H PRN #20 tab.dis PRN Reason: Nausea Instructions: Abdominal Pain, Adult, Constipation, Adult, [id number] Referrals: Hollie Zabala PA-C [Primary Care Provider] - Forms: ED Department Discharge Additional Instructions: Recommend symptomatic care. Zofran 1 tab every 6-8 hours as needed for nausea. Bentyl 1 tab 3 times a day as needed for abdominal pain and cramping. I also recommend you start a probiotic. These are available [id number]. Recommend clear fluids and blander foods. [place] foods include bread, rice, applesauce, toast, yogurt, egg whites etc. your xray did show increased stool in the right side of your colon. Recommend using some magnesium citrate or MiraLAX these are available [id number]. If you continue to have abdominal pain and early next week follow-up with your primary care provider. Please return to ER your symptoms change or worsen. - My Orders Last 24 Hours: My Active Orders 09/01/18 14:35 Orthostatic Vital Signs [RC] ASDIRECTED 09/01/18 16:09 Abdomen 2V AP Flat Upright [CR] Stat - Assessment/Plan Last 24 Hours: My Active Orders 09/01/18 14:35 Orthostatic Vital Signs [RC] ASDIRECTED 09/01/18 16:09 Abdomen 2V AP Flat Upright [CR] Stat <Kimmie Gruber - Last Filed: 09/01/18 20:25> ED HPI GENERAL MEDICAL PROBLEM - History of Present Illness INITIAL COMMENTS - FREE TEXT/NARRATIVE: I have seen the patient and agree with the HPI as documented by LISA Horowitz. ED ROS GENERAL - Review of Systems Review Of Systems: See Below Constitutional: Denies: Fever, Chills HEENT: Reports: No Symptoms GI/Abdominal: Reports: Abdominal Pain. Denies: Constipation, Diarrhea, Nausea, Vomiting : Reports: No Symptoms ED EXAM, GI/ABD - Physical Exam Exam: See Below Course - Radiology Interpretation Free Text/Narrative:: flat and upright abdominal xray shows no air fluid lines. No free air. Mild constipation to the right hemicolon. Formal radiology read pending. - Re-Assessments/Exams Free Text/Narrative Re-Assessment/Exam: 09/01/18 16:23 I have seen the patient and agree with the HPI, ROS and PE as documented by LISA Horowitz Reviewed the labs and imaging with the patient. Will discharge home tonight. Follow-up if not better. REcommend symptomatic care with zofran and bentyl. Recommend magnesium citrate or miralax for constipation. Discharge instruction as documented. Departure - Departure Time of Disposition: 16:36 Condition: Fair - Discharge Information *PRESCRIPTION DRUG MONITORING PROGRAM REVIEWED*: No *COPY OF PRESCRIPTION DRUG MONITORING REPORT IN PATIENT BRIDGETT: No
--- NOTE | 2018-09-02 07:29 | CR ---
Abdomen: Supine and upright views of the abdomen were obtained. Comparison: No prior abdominal study. Bowel gas pattern appears normal. Small calcifications within the left pelvis most likely represent phleboliths if patient has no obstructive ureteral symptoms. No free air is seen. Bony structures appear within normal limits for the patient's age. No discrete soft tissue abnormality is seen. Impression: 1. Incidental findings as noted above. Nothing acute is appreciated. Diagnostic code #1
== END 2018-09-01 16:50 | disposition home or self-care (01) ==
LOC: JD.ED 13:53
DX: K59.00 Constipation, unspecified (principal); F17.210 Nicotine dependence, cigarettes, uncomplicated
CPT/HCPCS: 36415; 74019; 80053; 81001; 81025; 85007; 85027; 86140; 99284; A9270

== ENCOUNTER 2018-10-18 11:24 | Emergency (ER) | payer MEDICAID ==
[2018-10-18 11:55] VITALS: BP 128/90
[2018-10-18] MEDS ORDERED: Acetaminophen/oxyCODONE 325-5 MG Tab PO ONE (12:07)
[2018-10-18] MEDS ORDERED: Ibuprofen 600 MG Tab PO ONE (12:07)
--- NOTE | 2018-10-18 12:15 | EDM.PDOC ---
ED HPI GENERAL MEDICAL PROBLEM - General Chief Complaint: ENT Problem Stated Complaint: RIGHT EAR PAIN/CONGESTION Time Seen by Provider: 10/18/18 12:08 Source of Information: Reports: Patient History Limitations: Reports: No Limitations - History of Present Illness INITIAL COMMENTS - FREE TEXT/NARRATIVE: 28-year-old female presents to the ED with severe pain in her right ear that is making her cry. He states it's a deep aching constant throbbing pain and is felt both behind the ear as well as into her temporal scalp as well as anterior to the ear and into her mandible. Scribed is throbbing and pulsating. No drainage from the ear is been appreciated. He said some mild cold symptoms over the last few days. Does have a mild productive cough at this time. No significant fever. She has also been plagued by dental caries and dental pain. Cymbalta posterior her upper molars bilaterally. States cough will produce intermittent amounts of a brownish sputum. She smokes occasional cigars she has been placing Orajel on her teeth for relief of pain. Onset: Today Onset Date: 10/18/18 Onset Time: 01:00 Duration: Hour(s): Location: Reports: Head (Right temporal face and mandibular pain), Face (Dear was painful yesterday but really started hurting at 1:00 this morning ear pain) , Chest (Productive cough for the last 2-3 days), Other Quality: Reports: Ache (Also dental caries right upper molar teeth), Pressure, Throbbing Severity: Moderate Improves with: Reports: None (Tylenol didn't help at all.) Worsens with: Reports: Other Context: Reports: Other. Denies: Activity, Lifting, Sick Contact, Trauma Associated Symptoms: Reports: Cough, cough w sputum (Spontaneous occurrence), Loss of Appetite, Malaise (Didn't get any sleep last night). Denies: No Other Symptoms, Confusion, Chest Pain ( brownish in color), Diaphoresis, Fever/Chills , Headaches, Nausea/Vomiting, Rash, Seizure, Syncope, Weakness Treatments TESTING DIRECTOR: Reports: Acetaminophen Right Ear Pain Score (Numeric/FACES): 6 - Related Data Allergies Allergy/AdvReac Type Severity Reaction Status Date / Time No Known Allergies Allergy Verified 01/10/18 05:58 Home Meds: Home Meds Doxycycline [Vibramycin] 100 mg PO BID #25 cap 10/18/18 [Rx] Gentamicin [Garamycin 0.3% Ophth Soln] 15 ml EARRT Q4H #1 bottle 10/18/18 [Rx] oxyCODONE HCl/Acetaminophen [Percocet 5-325 mg Tablet] 1 - 2 each PO Q4H PRN # 16 tablet 10/18/18 [Rx] Past Medical History - Past Health History Medical/Surgical History: Denies 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: , 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 : 1 Para: 0 Other 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 Denies: Fever, Chills, Weight Loss HEENT: Reports: Ear Pain, Other (Dental pain right upper molar teeth.). Denies : Ear Discharge, Eye Discharge (Severe right side), Eye Pain, Glasses, Hearing Loss, Nosebleed, Sinus Problem, Throat Pain, Throat Swelling Respiratory: Reports: Cough, Sputum (Brownish in color) Cardiovascular: Reports: No Symptoms Endocrine: Reports: No Symptoms GI/Abdominal: Reports: Decreased Appetite : Reports: No Symptoms Musculoskeletal: Reports: No Symptoms Skin: Reports: No Symptoms Neurological: Reports: No Symptoms Psychiatric: Reports: No Symptoms Hematologic/Lymphatic: Reports: No Symptoms ED EXAM, ENT - Physical Exam Exam: See Below Exam Limited By: No Limitations General Appearance: Alert, WD/WN, Moderate Distress (Crying because of the constant pain in her ear.) Eye Exam: Bilateral Eye: Normal Inspection Ears: Canal Swelling (Marked swelling of the floor of the middle ear canal.), Other (Old scarring of the tympanic membrane with no active infection at this time in the middle ear cavity). No: Mastoid Tenderness, Canal Blood, Canal Discharge, Canal Foreign Body, TM Bulging, TM Dullness Mouth/Throat: Dental Pain (Dental caries from severe destruction of the upper right second and first molars. About 40% of the first molar is absent and 30% of the second), Dental Tenderness ( molar is absent due to dental caries both are very tender to touch. There are show any signs of active infection.). No: Throat Swelling (right first and second molar teeth. ), Tongue Swelling, Tonsillar Exudates, Tonsillar Swelling Head: Atraumatic, Normocephalic Neck: Normal Inspection, Supple, Non-Tender, Full Range of Motion. No: Lymphadenopathy (L), Lymphadenopathy (R) Respiratory/Chest: No Respiratory Distress, Lungs Clear, Normal Breath Sounds, No Accessory Muscle Use, Other (No adventitial sounds were appreciated) Cardiovascular: Normal Peripheral Pulses, Regular Rate, Rhythm, No Edema, No Murmur, No Rub Extremities: Normal Inspection, Normal Range of Motion, Non-Tender, No Pedal Edema Neurological: Alert Psychiatric: Tearful Skin: Warm, Dry, Intact, Normal Color, No Rash Course - Vital Signs Last Recorded V/S: Last Vital Signs Temp 37.2 C 10/18/18 11:55 Pulse 90 10/18/18 11:55 Resp 16 10/18/18 11:55 BP 128/90 10/18/18 11:55 Pulse Ox 98 10/18/18 11:55 - Orders/Labs/Meds Orders: Active Orders 24 hr Category Date Time Status INFLUENZA A+B AG SCREEN [RM] Stat Lab 10/18/18 11:53 Received Meds: Medications Discontinued Medications Generic Name Dose Route Start Last Admin Trade Name Freq PRN Reason Stop Dose Admin Ibuprofen 600 mg 10/18/18 12:07 10/18/18 12:16 Motrin PO 10/18/18 12:08 600 mg ONETIME ONE Administration Oxycodone/Acetaminophen 1 tab 10/18/18 12:07 10/18/18 12:16 Percocet 325-5 Mg PO 10/18/18 12:08 1 tab ONETIME ONE Administration - Radiology Interpretation Free Text/Narrative:: 28-year-old female presents to the ED with severe pain in her right ear since 0100 hrs. this morning. Examination reveals an otitis externa. Middle ear cavity is normal. She has pain in the right temporal scalp as well as along the anterior ear and mandible. She has dental caries involving the upper right first and second molar teeth which may or may not be contributing to current pain syndrome. So she did productive cough without any adventitial sounds on exam. Afebrile. Plan Percocet tab 1 5/3/25 milligram tablet with Motrin 6 mg by mouth now. Will be placed on Doxil cycle 100 mg twice a day for the next 10 days. Advised 2 tablets the first dose. Drops to the ear or to be Garamycin ophthalmic drops which will be used in the ear 2 drops every 4 hours for the next 2 days and then 4 times a day for 8 days to complete a 10 day course. Discharged with Percocet 5/325 mg tabs 16 one or 2 every 4-6 hours in combination with Motrin 600 mg every 6 hours for pain relief. Advised that she is going to need to see the dentist to have the right upper second and first molar teeth removed as dental caries are severe at this time. Us was clear to stage percussion is likely viral in origin. The Percocet tablets will act as a cough suppressant. Follow up with personal care physician if any further problems occur Departure - Departure Time of Disposition: 12:08 Disposition: Home, Self-Care 01 Condition: Fair Clinical Impression: Infected dental carries, Bronchitis Otitis externa Qualifiers: Otitis externa type: noninfectious Noninfectious otitis externa type: unspecified noninfectious type Chronicity: acute Laterality: right Qualified Code(s): H60.501 - Unspecified acute noninfective otitis externa, right ear - Discharge Information *PRESCRIPTION DRUG MONITORING PROGRAM REVIEWED*: Not Applicable *COPY OF PRESCRIPTION DRUG MONITORING REPORT IN PATIENT BRIDGETT: Not Applicable Prescriptions: Doxycycline [Vibramycin] 100 mg PO BID #25 cap Gentamicin [Garamycin 0.3% Ophth Soln] 15 ml EARRT Q4H #1 bottle oxyCODONE HCl/Acetaminophen [Percocet 5-325 mg Tablet] 1 - 2 each PO Q4H PRN # 16 tablet PRN Reason: pain relief. Instructions: Otitis Externa, [id number] Referrals: PCP,None [Primary Care Provider] - Forms: ED Department Discharge Additional Instructions: Evaluation in the emergency department in regards to severe right ear pain since 0100 hrs. this morning. Did productive cough and associated dental caries of the right upper first and second molar teeth, which may or may not be infected. Examination reveals an infection in the floor of the right ear canal called otitis externa. Wound itself has scar tissue but no signs of an active infection within the deep middle ear. Left eardrum and canal are normal. Treatment is to place a piece of combat in the year before showering for the next month and then take it out immediately after showering to try keep as much water out of ears possible. Drops are to be instilled 2 drops possibly 3 every 4 hours and then set up in the same position for 5 minutes to let the drops soak in. After 2 days may reduce to 4 times daily for the next 8 days to make the infection clear up completely. Also need to take oral antibiotic doxycycline 100 mg twice daily for the next 10 days. Take 2 tablets the first dose. Continue Motrin 600 mg every 6 hours to reduce pain and inflammation and Percocet tabs 5/325 mg one or 2 every 4-6 hours as needed for pain relief. Initial doses of those medications were given in the ED. Marked improvement over the next 48-72 hours. Dental caries right upper first and second molars will need dental management. It was impossible to tell if they are infected as they are both very tender to touch. The antibiotic will help clear up this infection as well. Return within a short period of time of the antibiotics being finished. Advise dental care within the next 10-14 days. - My Orders Last 24 Hours: My Active Orders 10/18/18 11:53 INFLUENZA A+B AG SCREEN [RM] Stat - Assessment/Plan Last 24 Hours: My Active Orders 10/18/18 11:53 INFLUENZA A+B AG SCREEN [RM] Stat
== END 2018-10-18 12:28 | disposition home or self-care (01) ==
LOC: JD.ED 11:24
DX: J40 Bronchitis, not specified as acute or chronic (principal); H60.501 Unspecified acute noninfective otitis externa, right ear; K04.7 Periapical abscess without sinus; K02.9 Dental caries, unspecified
CPT/HCPCS: 87804; 99282; A9270; 99283

== ENCOUNTER 2018-11-08 00:55 | Emergency (ER) | payer MEDICAID ==
[2018-11-08 01:03] VITALS: BP 139/99
[2018-11-08] MEDS ORDERED: Acetaminophen/HYDROcodone 325-5 MG Tab PO ONE (01:20)
[2018-11-08] MEDS ORDERED: Amoxicillin 500 MG Cap PO ONE (01:20)
--- NOTE | 2018-11-08 01:28 | EDM.PDOC ---
ED HPI GENERAL MEDICAL PROBLEM - General Chief Complaint: ENT Problem Stated Complaint: LEFT SIDE TOOTH PAIN WISDOM TOOTH Time Seen by Provider: 11/08/18 01:11 Source of Information: Reports: Patient, RN Notes Reviewed - History of Present Illness INITIAL COMMENTS - FREE TEXT/NARRATIVE: 28-year-old female with left lower posterior dental pain. She's been having pain for about a month. She's been taking a lot of acetaminophen and not getting very good pain relief. She has not seen a dentist for this problem. Fever or chills. Left Lower Tooth/Teeth Pain Score (Numeric/FACES): 10 - Related Data Allergies Allergy/AdvReac Type Severity Reaction Status Date / Time No Known Allergies Allergy Verified 01/10/18 05:58 Home Meds: Home Meds Doxycycline [Vibramycin] 100 mg PO BID #25 cap 10/18/18 [Rx] Gentamicin [Garamycin 0.3% Ophth Soln] 15 ml EARRT Q4H #1 bottle 10/18/18 [Rx] oxyCODONE HCl/Acetaminophen [Percocet 5-325 mg Tablet] 1 - 2 each PO Q4H PRN # 16 tablet 10/18/18 [Rx] Acetaminophen/HYDROcodone [[place] 325-5 MG] 1 tab PO Q6H PRN #10 tablet 11/08/18 [Rx] Past Medical History - Past Health History Medical/Surgical History: Denies Medical/Surgical History 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: , Therapeutic Other SCREEN OPERATOR History: medication on October - Past Surgical History HEENT Surgical History: Reports: Oral Surgery Social & Family History - Family History Family Medical History: Noncontributory - Tobacco Use Smoking Status *Q: Light Tobacco Smoker Years of Tobacco use: 5 Packs/Tins Daily: 0.1 - Caffeine Use Caffeine Use: Reports: Coffee, Soda, Tea - Recreational Drug Use Recreational Drug Use: No - Living Situation & Occupation Living situation: Reports: Single, with Family (4 kids), Other (with roomate) Occupation: Unemployed ED ROS ENT - Review of Systems Review Of Systems: See Below Constitutional: Denies: Fever, Chills HEENT: Reports: Dental Pain Respiratory: Denies: Shortness of Breath Cardiovascular: Denies: Chest Pain GI/Abdominal: Denies: Abdominal Pain, Vomiting Musculoskeletal: Reports: No Symptoms Skin: Reports: No Symptoms ED EXAM, ENT - Physical Exam Exam: See Below General Appearance: Moderate Distress Eye Exam: Bilateral Eye: PERRL Mouth/Throat: Dental Pain (She has groomed disease visible tenderness left posterior molar, mild swelling of the gloom tissue lateral to her left posterior molar, no visible abscess, no visible drainage) Head: No: Facial Swelling Neck: Supple. No: Lymphadenopathy (L), Lymphadenopathy (R) Respiratory/Chest: No Respiratory Distress, Lungs Clear Cardiovascular: Regular Rate, Rhythm Extremities: Normal Inspection Neurological: Alert, No Motor/Sensory Deficits Skin: Warm, Dry Course - Vital Signs Last Recorded V/S: Last Vital Signs Temp 97.6 F 11/08/18 01:02 Pulse 90 11/08/18 01:02 Resp 16 11/08/18 01:02 BP 139/99 H 11/08/18 01:02 Pulse Ox 99 11/08/18 01:02 - Orders/Labs/Meds Meds: Medications Discontinued Medications Generic Name Dose Route Start Last Admin Trade Name Kadenq PRN Reason Stop Dose Admin Hydrocodone Bitart/Acetaminophen 1 tab 11/08/18 01:20 [place] 325-5 Mg PO 11/08/18 01:21 ONETIME ONE Amoxicillin 1,000 mg 11/08/18 01:20 Amoxil PO 11/08/18 01:21 ONETIME ONE Departure - Departure Time of Disposition: 01:24 Disposition: Home, Self-Care 01 Condition: Fair Clinical Impression: Pain, dental - Discharge Information Prescriptions: Acetaminophen/HYDROcodone [[place] 325-5 MG] 1 tab PO Q6H PRN #10 tablet PRN Reason: Pain Referrals: PCP,None [Primary Care Provider] - Additional Instructions: Amoxicillin 1000 mg twice daily for 1 week or until gone. Tylenol 1000 mg or 2 500 mg tablets 2-3 times daily, do not take more than 6 per day. He may take Advil or Aleve in between doses of Tylenol for extra pain relief. You may take hydrocodone if needed for severe pain but do not drive or work when taking hydrocodone. Do not take Tylenol and hydrocodone at the same time. See dentist as soon as possible.
== END 2018-11-08 01:37 | disposition home or self-care (01) ==
LOC: JD.ED 00:55
DX: K08.89 Other specified disorders of teeth and supporting structures (principal); F17.210 Nicotine dependence, cigarettes, uncomplicated; Z79.899 Other long term (current) drug therapy
CPT/HCPCS: 99282; A9270; 99283